=== PATIENT | female | born 1935 | race Caucasian/White ===

== ENCOUNTER 2021-12-19 21:00 | Emergency (ER) | payer MEDICARE, BC ==
[2021-12-19] MEDS ORDERED: Ondansetron 4 MG/2 ML SDV IVPUSH ONE (21:01)
[2021-12-19] MEDS ORDERED: Ketorolac 30 MG/ML SDV IVPUSH ONE (21:50)
[2021-12-19] MEDS ORDERED: Sodium Chloride 0.9% 1,000 ML IV ONE (21:50)
[2022-01-09 07:30] LABS: CHLORIDE,CL 99 mmol/L (98-115); ESTIMATED GFR 88 mL/min (>=60); SODIUM,NA 134 mmol/L (136-145)
== END 2021-12-20 00:06 | disposition home or self-care (01) ==
LOC: KA.ED 21:00
DX: U07.1 COVID-19 (principal); E86.0 Dehydration
CPT/HCPCS: 36415; 80053; 85025; 96361; 96374; 96375; 99284; J1885; J2405; J7030